=== PATIENT | male | born 2000 | race Two or more races ===

== ENCOUNTER 2022-09-11 18:10 | Emergency (ER) | payer SELFPAY ==
[~2022-09-11] VITALS: Ht 177.8 cm; Wt 98.8 kg
[2022-09-11] MEDS ORDERED: DexAMETHasone SOD PHOS 10MG/1ML VIAL INJ IV ONE (19:00)
[2022-09-11] MEDS ORDERED: methylPREDNISolone SOD SUCC 125 MG/2 ML VL IV ONE (19:00)
[2022-09-11] MEDS ORDERED: EPINEPHrine HCL 1 MG/1 ML AMP IM ONE (19:00)
[2022-09-11] MEDS ORDERED: diphenhdrAMINE HCL 50 MG/1 ML VL IV ONE ×2 (19:00→20:00)
[2022-09-11] MEDS ORDERED: FAMOTIDINE (10MG/ML) 2ML VL IV ONE (19:00)
[2022-09-11] MEDS ORDERED: IPRATROPIUM BROM 0.5 MG/2.5ML INH SOL NEB ONE (20:00)
[2022-09-11] MEDS ORDERED: SODIUM CHLORIDE 0.9% 1,000 ML IV ONE (20:00)
[2022-09-11] MEDS ORDERED: ALBUTEROL SULF 2.5 MG/0.5ML(0.5%) NEB SOLN NEB ONE (20:00)
[2022-09-11] MEDS ORDERED: PRED20TA2 PO (21:33)
[2022-09-11] MEDS ORDERED: CETI10CA PO (21:33)
[2022-09-11] MEDS ORDERED: FAMO20TA10 PO (21:33)
[2022-09-11 21:58] VITALS: BP 113/52
== END 2022-09-11 22:05 | disposition home or self-care (01) ==
LOC: ER 18:10
DX: L50.9 Urticaria, unspecified (principal); Z91.013 Allergy to seafood; Z98.890 Other specified postprocedural states
CPT/HCPCS: 36600; 82805; 94640; 96361; 96372; 96374; 96375; 99285; J0171; J1100; J1200; J3490; J7030; J7644